=== PATIENT | male | born 1985 | race Caucasian/White ===

== ENCOUNTER → 2019-08-01 12:34 | Outpatient (CLI) | payer BC, SELFPAY ==
--- NOTE | 2019-08-05 12:50 | PC.NURSE ---
Pt notified of negative COVID 19 results.
[2019-08-05 16:14] LABS: Covid-19 Nasal PCR Sendout Lex NOT DETECTED
== END ==
PROVIDERS: Visit Provider Nurse Practitioner Family
DX: J02.9 Acute pharyngitis, unspecified (principal); Z20.828 Contact with and (suspected) exposure to other viral communicable diseases; R05 Cough; R53.83 Other fatigue

== ENCOUNTER 2023-10-28 19:30 | Outpatient (CLI) | payer OTHER, SELFPAY | END 2023-10-28 23:59 | disposition home or self-care (01) | LOC: LAB.DROPOF 19:32 | PROVIDERS: PCP Nurse Practitioner; Visit Provider Nurse Practitioner | DX: Z02.9 Encounter for administrative examinations, unspecified (principal) ==

== ENCOUNTER 2023-10-28 19:34 | Outpatient (CLI) | payer OTHER, SELFPAY ==
[2023-10-28 20:08] LABS: Basophils # 0.1 K/mm3 (0-0.2); Basophils % 1.3 % (0.1-2.0); Eosinophils # 0.3 K/mm3 (0.0-0.4); Eosinophils % 3.3 % (0.1-12.0); Hematocrit 46.2 % (42.0-52.0); Hemoglobin 15.9 g/dL (14.1-18.0); Lymphocytes # 3.3 K/mm3 (0.7-4.5); Lymphocytes % 33.2 % (10-50); Mean Corpuscular HGB Conc 34.4 g/dL (31.8-35.4); Mean Corpuscular Hemoglobin 32.2 pg (27.0-31.2); Mean Corpuscular Volume 93.5 fl (80-94); Mean Platelet Volume 9.5 fl (7.4-10.4); Monocytes # 0.7 K/mm3 (0.1-1.0); Monocytes % 6.5 % (1.7-9.3); Neutrophils # 5.6 K/mm3 (1.8-7.8); Neutrophils % 55.6 % (37.0-80.0); Platelet Count 326 K/mm3 (142-424); Red Blood Count 4.94 M/mm3 (4.60-6.20); Red Cell Distribution Width 13.2 % (11.5-17.5)
[2023-10-28 20:18] LABS: Creatinine,Urine Random 183 mg/dL (Not Estab.)
[2023-10-28 20:21] LABS: Microalbumin/Creatinine Ratio 5.3
[2023-10-28 20:27] LABS: Hemoglobin A1C 7.6 % (4.0-6.0)
[2023-10-28 20:59] LABS: Alanine Aminotransferase 91 U/L (12-78); Albumin Level 4.4 g/dl (3.5-5.0); Albumin/Globulin Ratio 1.6 (1.1-1.8); Alkaline Phosphatase 102 U/L (38-126); Anion Gap 13.1 mEq/L (5-15); Aspartate Amino Transferase 44 U/L (17-59); Bilirubin,Total 0.4 mg/dl (0.2-1.3); Blood Urea Nitrogen 23 mg/dl (9-20); Calcium 9.5 mg/dl (8.4-10.2); Carbon Dioxide 25 mmol/L (22.0-30.0); Chloride 107 mmol/L (98-107); Chol/HDL Ratio 7.8 (1-3.5); Cholesterol 204 mg/dl (140-200); Estimated Glomerular Filt Rate 67 ml/min (>60); GFR (African American) 82 ML/MIN (>60); Globulin 2.8 g/dL (1.3-3.2); Glucose 161 mg/dl (74-100); HDL Cholesterol 26 mg/dl (40-60); Potassium 4.1 mmoL/L (3.5-5.1); Sodium 141 mmol/L (136-145); Total Protein,Serum 7.2 g/dl (6.3-8.2); Triglycerides 364 mg/dl (30-150); VLDL Cholesterol 73 mg/dL (0-40)
[2023-10-28 21:10] LABS: Direct LDL Cholesterol 108.86 mg/dL (100-129)
[2023-10-28 21:16] LABS: 25-OH Vitamin D, Total 37.2 ng/mL (30-100)
[2023-10-28 21:50] LABS: Vitamin B12 817 pg/mL (239-931)
[2023-10-29 10:36] LABS: Thyroid Stimulating Hormone 1.33 uIU/mL (0.465-4.68)
== END 2023-10-28 23:59 | disposition home or self-care (01) ==
LOC: LAB.DROPOF 19:35
PROVIDERS: PCP Nurse Practitioner; Visit Provider Nurse Practitioner
DX: E11.9 Type 2 diabetes mellitus without complications (principal); E78.5 Hyperlipidemia, unspecified
CPT/HCPCS: 80050; 80053; 80061; 82043; 82306; 82570; 82607; 83036; 84443; 85025

== ENCOUNTER 2024-09-01 10:00 | Outpatient (CLI) | payer OTHER, SELFPAY ==
[2024-09-01 18:37] LABS: Basophils # 0.1 K/mm3 (0-0.2); Basophils % 0.7 % (0.1-2.0); Eosinophils # 0.2 Kmm3 (0.0-0.4); Eosinophils % 2.4 % (0.1-12.0); Hematocrit 46.3 % (42.0-52.0); Hemoglobin 15.7 g/dL (14.1-18.0); Immature Granulocytes # 0.02 10^3uL; Immature Granulocytes % 0.2 %; Lymphocytes # 2.4 K/mm3 (0.7-4.5); Lymphocytes % 28.3 % (10-50); Mean Corpuscular HGB Conc 33.9 g/dL (31.8-35.4); Mean Corpuscular Hemoglobin 30.8 pg (27.0-31.2); Mean Corpuscular Volume 90.8 fl (80-94); Mean Platelet Volume 11.3 fl (7.4-10.4); Monocytes # 0.7 K/mm3 (0.1-1.0); Monocytes % 8.4 % (1.7-9.3); Neutrophils # 5.1 K/mm3 (1.8-7.8); Nucleated Red Blood Cells # 0 10^3/uL; Nucleated Red Blood Cells % 0 %; Platelet Count 279 K/mm3 (142-424); Red Cell Distribution Width 12.6 % (11.5-17.5); Red Cell Distribution Width-SD 41.6 fL; White Blood Count 8.4 K/mm3 (4.8-10.8)
[2024-09-01 19:04] LABS: Alanine Aminotransferase 95 U/L (12-78); Albumin Level 4.7 g/dl (3.5-5.0); Alkaline Phosphatase 90 U/L (38-126); Anion Gap 10.2 mEq/L (5-15); Aspartate Amino Transferase 55 U/L (17-59); Bilirubin,Total 0.8 mg/dl (0.2-1.3); Blood Urea Nitrogen 21 mg/dl (9-20); Calcium 9.4 mg/dl (8.4-10.2); Carbon Dioxide 27 mmol/L (22.0-30.0); Chloride 108 mmol/L (98-107); Cholesterol 182 mg/dl (140-200); Estimated Glomerular Filt Rate 83 ml/min (>60); GFR (African American) 100 ML/MIN (>60); Globulin 2.3 g/dL (1.3-3.2); Glucose 163 mg/dl (74-100); HDL Cholesterol 26 mg/dl (40-60); Potassium 4.2 mmoL/L (3.5-5.1); Sodium 141 mmol/L (136-145); Triglycerides 239 mg/dl (30-150); VLDL Cholesterol 48 mg/dL (0-40)
[2024-09-01 19:17] LABS: Direct LDL Cholesterol 99.62 mg/dL (100-129)
[2024-09-01 19:27] LABS: 25-OH Vitamin D, Total 31.4 ng/mL (30-100)
[2024-09-01 19:35] LABS: Thyroid Stimulating Hormone 0.38 uIU/mL (0.465-4.68)
[2024-09-01 19:54] LABS: Vitamin B12 834 pg/mL (239-931)
[2024-09-01 22:59] LABS: Microalbumin/Creatinine Ratio 3.7
[2024-09-01 23:00] LABS: Creatinine,Urine Random 184 mg/dL (Not Estab.)
[2024-09-01 23:36] LABS: HIV Combo NEGATIVE (Negative)
[2024-09-01 23:45] LABS: Hepatitis C Ab Qual. W/ RFX NEGATIVE (Negative)
[2024-09-03 08:13] LABS: Testosterone,Total 333 ng/dL (264-916)
== END 2024-09-01 23:59 | disposition home or self-care (01) ==
LOC: LAB.DROPOF 09-02 08:31
PROVIDERS: PCP Nurse Practitioner; Visit Provider Nurse Practitioner
DX: Z13.0 Encounter for screening for diseases of the blood and blood-forming organs and certain disorders involving the immune mechanism (principal); E11.9 Type 2 diabetes mellitus without complications; E78.5 Hyperlipidemia, unspecified; R53.83 Other fatigue
CPT/HCPCS: 80053; 80061; 82043; 82306; 82570; 82607; 83036; 84403; 84443; 85025; 86803; 87389

== ENCOUNTER → 2024-10-08 12:06 | Outpatient (CLI) | payer OTHER, SELFPAY ==
--- OUTSIDE RECORDS SUMMARY | 2024-10-08 12:08 | XMS_ITS | Encounter Summary ---
Author Organization [facility] Address [address] [place] [address] Care Team Providers Care Hvac/R Instructor Name Role Phone Jah Valenzuela MD Primary Care Provider [phone] Lakisha Villanueva DIGITAL MARKETING COORDINATOR Unavailable Unavailable Maira Arias MD Unavailable [phone] Maira Arias MD Primary Care Provider [phone] Radha Reid DIGITAL MARKETING COORDINATOR Unavailable Unavailable Encounter Details Date Type Department Care Team (Late st Contact Info) Description 04/19/2019 Clinical Update [facility] Physicians - Primary Care, [address] [address] Jah Valenzuela MD [address] [address] Social History Tobacco Use Types Packs/Day Years Used Date Smoking Tobacco: Former Smokeless Tobacco: Current Snuff Alcohol Use Standard Drinks/Week Comments Yes 0 (1 standard drink = 0.6 oz pur e alcohol) AUDIT-C Answer Date Recorded Frequency of Alcohol Consumption Monthly or less 09/24/2018 Average Number of Drinks 1 or 2 019 Frequency of Binge Drinking Less than monthly PHQ-2 Answer Date Recorded PHQ-2 Score 0 09/24/2018 Sex and Gender Information Value Date Recorded Sex Assigned at Not on file Legal Sex Male 6:32 PM EST Gender Identity Not on file Sexual Orientation Not on file documented as of this encounter Plan of Treatment Not on file documented as of this encounter Visit Diagnoses Not on filedocumented in this encounter Additional Health Concerns Assessment Noted Time PHQ-9 Depression Total Score: 1 09/25/19 19 3:24 PM EDT documented as of this encounter Care Teams Hvac/R Instructor Relationship Specialty Start Date End Date Jah Valenzuela MD PCP - General Family Medicine 09/24/18 03/11/22 Maira Arias MD [email or web address] [address] PCP - General Family Medicine 03/12/22 Lakisha Villanueva NP Nurse Practitioner Nurse Practitioner, Family 10/03/20 Maira Arias MD Family Medicine 10/30/21 Radha Reid NP [address] [address] Registered Nurse Nurse Practitioner, Family 03/18/22 documented as of this encounter
--- OUTSIDE RECORDS SUMMARY | 2024-10-08 12:08 | XMS_ITS | Encounter Summary ---
Author Organization [facility] Address [address] [place] [address] Care Team Providers Care Field Support Specialist Name Role Phone Jah Valenzuela MD Primary Care Provider [phone] Lakisha Villanueva ROOM SERVICE ASSOCIATE Unavailable Unavailable Maira Arias MD Unavailable [phone] Maira Arias MD Primary Care Provider [phone] Radha Reid ROOM SERVICE ASSOCIATE Unavailable Unavailable Reason for Visit * Reason Comments Medications Refill Encounter Details Date Type Department Care Team (Late st Contact Info) Description 10/03/2020 Refill [facility] Physicians - Primary Care[address] [address] Jah Valenzuela MD [address] [address] Medications Refill Social History Tobacco Use Types Packs/Day Years Used Date Smoking Tobacco: Former Smokeless Tobacco: Current Snuff Alcohol Use Standard Drinks/Week Comments Yes 0 (1 standard drink = 0.6 oz pur e alcohol) AUDIT-C Answer Date Recorded Frequency of Alcohol Consumption Monthly or less 09/24/2018 Average Number of Drinks 1 or 2 019 Frequency of Binge Drinking Less than monthly PHQ-2 Answer Date Recorded PHQ-9 Auto Total 0 02/02/2020 Sex and Gender Information Value Date Recorded Sex Assigned at Not on file Legal Sex Male 6:32 PM EST Gender Identity Not on file Sexual Orientation Not on file COVID-19 Exposure Response Date Recorded In the last month, have you been in contact with someone who was confirmed or suspected to have Coronavirus / COVID-19? Unable to assess 10/04/2020 3:19 PM EDT documented as of this encounter Miscellaneous Notes * Telephone Encounter - Harini Valenzuela NCMA - 10/04/2020 10:52 AM EDT LMOVM letting patient know he needs to be seen before his next refill so call the office to schedule an appointment * Telephone Encounter - Jah Valenzuela MD - 10/04/2020 10:27 AM EDT Make sure that he knows that he needs an appointment to address his Ambien use. There are no problems with that, it is just not documented in his chart. 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, shift work type documented in this encounter Additional Health Concerns Assessment Noted Time PHQ-9 Depression Total Score: 1 02/02/20 20 3:35 PM EDT documented as of this encounter Care Teams Field Support Specialist Relationship Specialty Start Date End Date Jah Valenzuela MD PCP - General Family Medicine 09/24/18 03/11/22 Maira Arias MD [address] [place] [address] PCP - General Family Medicine 03/12/22 Lakisha Villanueva NP Nurse Practitioner Nurse Practitioner, Family 10/03/20 Maira Arias MD Family Medicine 10/30/21 Radha Reid NP [address] [address] Registered Nurse Nurse Practitioner, Family 03/18/22 documented as of this encounter
--- OUTSIDE RECORDS SUMMARY | 2024-10-08 12:08 | XMS_ITS | Clinical Summary ---
Author Organization [facility] Address [address] [place] [address] Care Team Providers Care Transactional Attorney Name Role Phone Lakisha Villanueva MASK FORMER Unavailable Unavailable Maira Arias MD Unavailable [phone] Maira Arias MD Primary Care Provider [phone] Radha Reid MASK FORMER Unavailable Unavailable Allergies No known active allergies Medications amoxicillin-clavulan ate (AUGMENTIN) 875-125 mg per tablet 2 times daily. 2 Active ondansetron (ZOFRAN) 8 mg tabletIndications:Ac jame gastroenteritis Take 1 Tablet (8 mg) by mouth every 8 hours as needed for Nausea or Vomiting. 20 Tablet 2 Active fluticasone propionate (FLONASE) 50 mcg/actuation nasal sprayIndications:Acu te dysfunction of both eustachian tubes Mcintosh 2 Sprays into nose daily. 1 Each 2 2 Active Active Problems Problem Noted Date Diagnosed Date Obesity (BMI 30.0-34.9) 11/01/2021 Type 2 diabetes mellitus wit hout complication, without long-term current use of insulin 09/24/2018 Dyslipidemia 09/24/2018 Shift work sleep disorder 09/24/2018 Nonspecific elevation of lev els of transaminase or lactic acid dehydrogenase (LDH) 03/20/2010 Immunizations Immunization Administration Dates Next Due Influenza 01/09/2017 Influenza (whole) 02/26/2021,01/26/2020,01/26/20 19 SARS-Cov-2 Vaccine Red Top 1 2+yrs Old (MODERNA) 12/22/2020,11/27/2020 Tdap 11/04/2017 Family History Medical History Relation Name Comments Alcohol Abuse Mother Lupus Mother No Known Problems Sister Relation Name Status Comments Father estranged Alive Mother Alive Sister Alive Social History Tobacco Use Types Packs/Day Years Used Date Smoking Tobacco: Former Smokeless Tobacco: Current Chew Tobacco Cessation:Ready to Q uit: No; Counseling Given: Yes Alcohol Use Standard Drinks/Week Comments Yes 0 (1 standard drink = 0.6 oz pur e alcohol) AUDIT-C Answer Date Recorded Frequency of Alcohol Consumption Monthly or less 09/24/2018 Average Number of Drinks 1 or 2 019 Frequency of Binge Drinking Less than monthly PHQ-2 Answer Date Recorded PHQ-9 Auto Total 0 05/02/2021 Sex and Gender Information Value Date Recorded Sex Assigned at Not on file Legal Sex Male 6:32 PM EST Gender Identity Not on file Sexual Orientation Not on file Last Filed Vital Signs Vital Sign Reading Time Taken Comments Blood Pressure 124/70 03/18/2022 9:40 AM EST Pulse 77 03/18/2022 9:40 AM EST Temperature 37 C (98.6 F) 03/18/2022 9:40 AM EST Respiratory Rate 16 05/02/2021 2:27 PM EST Oxygen Saturation 98% 03/18/2022 9:40 AM EST Inhaled Oxygen Concentration - - Weight 107.5 kg (237 lb) 03/18/2022 9:40 AM EST Height 182.9 cm (6') 10/30/2021 4:46 PM EDT Body Mass Index 32.14 10/30/2021 4:46 PM EDT Plan of Treatment Health Maintenance Due Date Last Done Comments Diabetes Mellitus Eye Exam (Yearly) 1984 Diabetes Mellitus Foot Care (Yearly) 1984 RETIRED: Pneumovax Vaccine (Once) 02/03/2002 Diabetes A1c Monitoring 05/02/2022 10/31/19, 05/02/2021, 10/16/2020, Additional history exists Diabetes Mellitus Microalbumin (Yearly) 05/02/2022 05/02/2021, 10/16/2020, 05/04/2019 Lipid Monitoring 10/30/2022 10/30/2021, 08/2021, 10/16/2020, Additional history exists Renal Monitoring 10/30/2022 10/30/2021, 08/2021, 10/16/2020, Additional history exists COVID-19 Vaccine ( season) 2023 12/22/2020, 11/27/2020 Depression Screening 04/28/2024 05/02/2021, 02/02/2020, 09/24/2018 Influenza Vaccination (Season Ended) 2024 02/26/2021, 01/26/2020, 01/25/2019, Additional history exists Tetanus Vaccination (Every 10 Years) 11/05/2027 11/04/2017 Influenza Vaccination (Yearly) Discontinued 02/26/2021, 01/26/2020, 01/25/2019, Additional history exists Diabetes Mellitus Hemoglobin A1c (Yearly) Discontinued 10/30/2021, 05/02/2021, 10/16/2020, Additional history exists Lipid Screening Discontinued 10/30/2021, 08/2021, 10/16/2020, Additional history exists HPV Vaccine Aged Out No longer eligi ble based on patient's age to complete this topic Pneumococcal Vaccine: At-Risk Patients (6-49 y/o) Aged Out No longer eligible based on patient's age to complete this topic Procedures Procedure Name Priority Date/Time Associated Diagnosis Comments COMPREHENSIVE METABOLIC PANEL Routine 10/30/2021 5:02 PM EDT Obesity (BMI 30.0-34.9) LIPID PROFILE Routine 10/30/2021 5:02 PM EDT Obesity (BMI 30.0-34.9) HGB, A1C (GLYCOHEMOGLOBIN) Routine 10/30/2021 5:02 PM EDT Obesity (BMI 30.0-34.9) ALBUMIN, URINE CREATININE/RATIO Routine 05/02/2021 3:03 PM EST Type 2 diabetes mellitus without complication, without long-term current use of insulin ([facility]) from Last 3 Months or Most Recently Relevant to Health Maintenance Results * (ABNORMAL) LIPID PROFILE (10/30/2021 5:02 PM EDT) Chol/HDL Ratio 6.5(H) 0 - 5 [facility]TER[facility] Cholesterol 209(H) 125 - 199 mg/dL [facility] Comment: TOTAL CHOLESTEROL INTERPRETATION: Less than 200 mg/dL Desireable 200-239 mg/dL Borderline Greater or Equal to 240 mg/dL High LDL Calculated 129(H) 0 - 100 mg/dL [facility] Comment: LDL CHOLESTEROL INTERPRETATION: Less than 100 mg/dL Optimal 100-129 mg/dL Near optimal/above optimal 130-159 mg/dL Borderline High 160-189 mg/dL High Greater or Equal to 190 mg/dL Very High HDL 32(L) 40 - 180 mg/dL [facility] Comment: HDL CHOLESTEROL INTERPRETATION: Less than 40 mg/dL Low Greater than 60 mg/dL Desirable Triglycerides 239(H) 0 - 149 mg/dL [facility] Comment: TOTAL TRIGLYCERIDE INTERPRETATION: Less than 150 mg/dL Normal 150-199 mg/dL Borderline HIgh 200-499 mg/dL High Greater or Equal to 500 mg/dL Very High Serum (Serum) 10/30/2021 5:0 2 PM EDT 10/30/2021 7:43 PM EDT us Maira Arias MD CHEMISTRY ORDERABLES Final Re sult [facility] [address] * (ABNORMAL) HGB, A1C (GLYCOHEMOGLOBIN) (10/30/2021 5:02 PM EDT) Hgb A1C 6.7(H) 4.0 - 5.6 % [facility] Comment: Reference Ranges for Hgb A1c: Increased risk for diabetes: 5.7-6.4% Probable diabetes: >=6.5% Desired control for previously diagnosed diabetics: <7.0% Many conditions can affect the Hgb A1c value including hemolysis, recent transfusion, hemoglobin variants, thalassemias, severe chronic hepatic and renal disease and iron deficiency among others. Please note that results from this assay are invalid for patients with abnormal amounts of Hemoglobin (HbF). Results must be interpreted in the proper clinical context. This method is certified by the National Glycohemoglobin Standardization program (NGSP) and traceable to DCCT. Estimated Average Glucose 146(H) 68 - 114 mg/dL [facility] Whole Blood 10/30/2021 5:02 PM EDT 10/30/2021 7:39 PM EDT us Maira Arias MD CHEMISTRY ORDERABLES Final Re sult [facility] [address] [place], [place] [address] * (ABNORMAL) COMPREHENSIVE METABOLIC PANEL (10/30/2021 5:02 PM EDT) Sodium 138 135 - 146 mmol/L [facility] Potassium 4.1 3.5 - 5.1 mmol/L [facility] Chloride 106 98 - 110 mmol/L [facility] CO2 23 22 - 29 mmol/L [facility] Comment: Based on [facility] recommendations, this result is no longer considered a critical value requiring lab to notify caregiver. Anion Gap 9 5 - 13 mmol/L [facility] Comment:Anion gap calculatio n does not include potassium (K+) value. BUN 17 7 - 25 mg/dL [facility] Comment: Based on [facility] recommendations, this result is no longer considered a critical value requiring lab to notify caregiver. Creatinine 1.16 0.50 - 1.30 mg/dL [facility] Glucose 135(H) 71 - 99 mg/dL [facility] eGFR CKD-EPI 2020 83 See Note [facility] Comment: eGFR calculated with 2020 CKD-EPI equation using creatinine, patient's age and gender. Other factors, especially muscle mass, may affect accuracy and need to be considered. Patient values should be interpreted as a trend. The reference interval is >60 mL/min/1.73m2. Calcium 9.4 8.8 - 10.9 mg/dL [facility] Total Bilirubin 0.6 0.2 - 1.2 mg/dL [facility] AST 33 0 - 40 U/L [facility] ALT 68(H) 0 - 60 U/L [facility] Alkaline Phosphatase 102 33 - 140 U/L [facility] Total Protein 7.9 6.0 - 8.0 g/dL [facility] Albumin 4.8 3.5 - 5.0 g/dL [facility] Globulin 3.1 2.0 - 3.7 g/dL [facility] Albumin/Globulin Ratio 1.5 1.0 - 2.1 [facility] BUN/Creatinine Ratio 15 [facility] Serum (Serum) 10/30/2021 5:0 2 PM EDT 10/30/2021 7:43 PM EDT Maira Arias MD CHEMISTRY ORDERABLES Final Re sult Performing Organization Address [facility] de Phone Number [facility] [address] * ALBUMIN, URINE (05/02/2021 3:03 PM EST) Creatinine, Ur 249.7 30.0 - 310.0 mg/dL [facility] Alb, Ur 1.00 mg/dL [facility] Alb Creat Ratio 4 0 - 30 mg/g creat [facility] Comment: Category Result (mg/ g Creat) Normal to mildly increased <30 Moderately increased 30-299 Severly increased >300 Due to variability in urinary albumin excretion, at least two of three test results measured within a 6-month period should show elevated levels before a patient is designated as having albuminuria. Urine 05/02/2021 3:03 PM EST 05/02/2021 8:04 PM EST Jah Valenzuela MD URINE ORDERABLES Final Resul t Performing Organization Address [facility] Co de Phone Number [facility] [address] from Last 3 Months or Most Recently Relevant to Health Maintenance Insurance [facility] [id number] [id number] Care Teams Transactional Attorney Relationship Specialty Start Date End Date Maira Arias MD [address] [address] PCP - General Family Medicine 03/12/22 Lakisha Villanueva NP Nurse Practitioner Nurse Practitioner, Family 10/03/20 Maira Arias MD Family Medicine 10/30/21 Radha Reid NP [address] [address] Registered Nurse Nurse Practitioner, Family 03/18/22
--- OUTSIDE RECORDS SUMMARY | 2024-10-08 12:08 | XMS_ITS | Referral Summary ---
Author Organization [facility] Address [address] [place] [address] Care Team Providers Care Pellet Preparation Operator Name Role Phone Pcp, None MD Primary Care Provider [phone] Allergies No known active allergies Medications No known medications Social History Tobacco Use Types Packs/Day Years Used Date Smoking Tobacco: Never Smokeless Tobacco: Current Chew Tobacco Cessation:Ready to Q uit: Not Asked; Counseling Given: Not Answered Alcohol Use Standard Drinks/Week Comments Yes 0 (1 standard drink = 0.6 oz pur e alcohol) occ Food Insecurities Answer Date Recorded Worried about running out of food Not on file 05/19/2023 Food Bought Not on file 05/19/2023 Housing/Utilities Answer Date Recorded Worried about losing home Not on file 2023 Stayed outside house Not on file 05/19/2023 Unable to get utilities Not on file 05/19/19 24 Interpersonal Safety Answer Date Record ed Feel physically or emotionally unsafe where curr ently live Not on file 05/19/2023 Harm by anyone Not on file 05/19/2023 Emotionally Harmed Not on file 05/19/2023 Transportation Answer Date Recorded Worried about transportation Not on file Utilities Answer Date Recorded Worried about losing home Not on file 2023 Stayed outside house Not on file 08/31/2023 Unable to get utilities Not on file 08/31/19 24 Sex and Gender Information Value Date Recorded Sex Assigned at Not on file Legal Sex Male 9:28 PM EDT Gender Identity Not on file Sexual Orientation Not on file Last Filed Vital Signs Vital Sign Reading Time Taken Comments Blood Pressure 166/98 04/13/2023 10:23 AM EST Pulse 76 04/13/2023 10:23 AM EST Temperature 36.6 C (97.8 F) 04/13/2023 10:23 AM EST Respiratory Rate 16 04/13/2023 10:23 AM EST Oxygen Saturation 96% 04/13/2023 10:23 AM EST Inhaled Oxygen Concentration - - Weight - - Height - - Body Mass Index - - Plan of Treatment Not on file Insurance [facility] NOT MEDICARE Care Teams Pellet Preparation Operator Relationship Specialty Start Date End Date Pcp, MD Jason PCP - General Internal Medicine 04/13/23
--- OUTSIDE RECORDS SUMMARY | 2024-10-08 12:08 | XMS_ITS | Patient Health Record ---
Author Organization [facility] Address [address] [place] [address] Care Team Providers Care Drafter Geological Name Role Phone [facility], Physicians Primary Care Provide r Unavailable Allergies Allergen (clinical drug ingredient) Drug/Non Drug Allergy documented on EMR Reaction Allergy Type Onset Date Status No Known Drug Allergy Unknown Drug Allergy Active Reason For Referral No Information Medications Medication SIG (Take, Route, Frequency, Duration) Notes Start Date End Date Status Tylenol 325 MG 2 tab(s) orally every 4 hours 10/04/2016 Not-Taking predniSONE 20 MG 3 tabs X 5 days, 2 tabs X 5 days, 1 tab X 5 days orally once a day for 15 day(s) 10/04/2016 Not-Taking Zanfel - 1 CANDELARIO APPLIED TOPICALLY 2 TIMES A DAY *Please review and pick correct strength-formulatio n from [employer] options. If intended option is not shown, discontinue and re-order from Quick Search* Not-Taking Caladryl 1-8 % 1 candelario applied topically 3 times a day Not-Taking Immunizations Vaccine Route Administration Date Status Comme nts Chicken Pox Varivax Vaccine SC Subcutaneous 09/07/2015 Adm inistered Chicken Pox Varivax Vaccine SC Subcutaneous 04/15/2016 Adm inistered zPPD ID Intradermal 09/07/2015 Administered zPPD ID Intradermal 08/21/2016 Administered Problems No Known Problems Plan Of Treatment No Information Insurance Providers Payer Name Payer Address Payer Phone Subscriber Number Group Number Insured Name Patient Relationship to Insured Coverage Start Date Coverage End Date [employer] [place] [address] [place] [address] [id number] Sacha Parnell Self - patient is the insured Medical (General) History Medical History History ICD Code Type 2 Diabetes Hospitalization History Reason Date(Month/Year) [place]? 2008
--- OUTSIDE RECORDS SUMMARY | 2024-10-08 12:08 | XMS_ITS | Clinical Summary ---
Author Organization [facility] Address [address] [place] [address] Care Team Providers Care Payroll Accounting Specialist Name Role Phone Pcp, No Primary Care Provider [phone] Source Comments This information has been disclosed to you from confidential records protectedfrom disclosure by state law. You shall make no further disclosure of thisinformation without the specific, written, and informed release of theindividual to whom it pertains, or as otherwise permitted by law. A generalauthorization for the release of medical or other information is not sufficientfor the purposes of therelease of HIV test results or diagnoses. [id number] Allergies No known active allergies Medications predniSONE (DELTASONE) 10 MG tablet 6 po daily for 2 d 5 po daily for 2 d 4 po daily for 2 d 3 po daily for 2 d 2 po daily for 2 d 1 po daily for 2 d 42 tablet 0 11/16/2013 Active Active Problems Problem Noted Date Diagnosed Date Pneumonia, organism unspecified(486) 06/19/2011 Nonspecific elevation of lev els of transaminase or lactic acid dehydrogenase (LDH) 03/20/2010 Rhabdomyolysis 03/15/2010 Pure hyperglyceridemia 03/15/2010 Abnormal weight gain 03/15/2010 Other abnormal blood chemistry 03/15/2010 Routine general medical exam ination at a health care facility 03/15/2010 Social History Tobacco Use Types Packs/Day Years Used Date Smoking Tobacco: Never Assessed Sex and Gender Information Value Date Recorded Sex Assigned at Not on file Legal Sex Male 10:25 PM EST Gender Identity Not on file Sexual Orientation Not on file Plan of Treatment Not on file Insurance [facility] Care Teams Payroll Accounting Specialist Relationship Specialty Start Date End Date Pcp, No No Address PCP - General 02/08/22
--- OUTSIDE RECORDS SUMMARY | 2024-10-08 12:08 | XMS_ITS | Clinical Summary ---
Author Organization [facility] Address [address] [place] [address] Phone Care Team Providers Care Pharmacist Aide Name Role Phone Unavailable Primary Care Provider Unavailabl e Allergies No known active allergies Medications No known medications Active Problems Problem Noted Date Diagnosed Date Obesity (BMI 30.0-34.9) 11/01/2021 Dyslipidemia 09/24/2018 Type 2 diabetes mellitus wit hout complication, without long-term current use of insulin 09/24/2018 Nonspecific elevation of lev els of transaminase or lactic acid dehydrogenase (LDH) 03/20/2010 Social History Tobacco Use Types Packs/Day Years Used Date Smoking Tobacco: Never Smokeless Tobacco: Current Tobacco Cessation:Ready to Q uit: Not Asked; Counseling Given: Not Answered Sex and Gender Information Value Date Recorded Sex Assigned at Not on file Legal Sex Male 9:10 AM EST Gender Identity Not on file Sexual Orientation Not on file Obstetrics History Last Filed Vital Signs Vital Sign Reading Time Taken Comments Blood Pressure 134/76 06/29/2023 11:02 AM EST Pulse 74 06/29/2023 11:02 AM EST Temperature 36.6 C (97.8 F) 06/29/2023 11:02 AM EST Respiratory Rate 18 06/29/2023 11:0 2 AM EST Oxygen Saturation 99% 06/29/2023 11: 02 AM EST Inhaled Oxygen Concentration - - Weight 113.6 kg (250 lb 6.4 oz) 024 11:02 AM EST Height 180.3 cm (5' 11 ) 06/29/2023 11: 02 AM EST Body Mass Index 34.92 06/29/2023 11:02 AM EST Plan of Treatment Health Maintenance Due Date Last Done Comments Annual Wellness Exam 02/03/1987 Lipids 02/03/1994 Microalbuminuria 02/03/1994 Diabetic Eye Exam 02/03/2002 Hemoglobin A1c 02/03/2002 Hepatitis B Vaccine (1 of 3 - 19+ 3-dose series) 02/03/2003 Pneumococcal Vaccine 0-49 (1 of 2 - PCV) 02/03/2003 COVID-19 Vaccine (3 - 2023-2 5 season) 2023 12/22/2020, 11/27/2020 Influenza Vaccine (Season Ended) 2024 01/09/2017, 01/09/2017 DTaP/TDaP/Td (3 - Td or Tdap) 09/30/2032, 11/04/2017 Meningococcal B Vaccine Aged Out No l onger eligible based on patient's age to complete this topic Insurance
--- OUTSIDE RECORDS SUMMARY | 2024-10-08 12:08 | XMS_ITS | Clinical Summary ---
Author Organization [facility] Address [address] [place] [address] Care Team Providers Care Memory Care Program Director Name Role Phone Pcp, None MD Primary Care Provider [phone] Allergies No known active allergies Medications No [...] Mass Index - - Plan of Treatment Health Maintenance Due Date Last Done Comments COVID-19 Vaccine ( season) 2023 12/22/2020, 11/27/2020 Influenza Vaccine (Season Ended) 2024 02/26/2021, 01/26/2020, 01/25/2019, Additional history exists DTap,Tdap,and Td (2 - Td or Tdap) 11/05/2027 11/04/2017 RSV Vaccine (60+ or ) (1 - 1-dose 75+ series) 02/03/2059 HPV Aged Out No longer eligi ble based on patient's age to complete this topic Meningococcal conjugate valent 4 (MCV4) Aged Out No longer eligible based on patient's age to complete this topic Pneumococcal 0-49 Aged Out No longer eligible based on patient's age to complete this topic RSV Immunization (<20 months) Aged Out No longer eligible based on patient's age to complete this topic Insurance Care Teams Memory Care Program Director Relationship Specialty Start Date End Date Pcp, MD Jason PCP - General Internal Medicine 04/13/23
== END ==
LOC: SL 12:06
PROVIDERS: PCP Nurse Practitioner; Visit Provider Nurse Practitioner
DX: G47.26 Circadian rhythm sleep disorder, shift work type (principal); G47.33 Obstructive sleep apnea (adult) (pediatric); G47.36 Sleep related hypoventilation in conditions classified elsewhere
CPT/HCPCS: G0399

== ENCOUNTER 2024-12-07 10:17 | Outpatient (CLI) | payer OTHER, SELFPAY ==
[2024-12-07 16:16] LABS: Alanine Aminotransferase 64 U/L (12-78); Albumin Level 4.8 g/dl (3.5-5.0); Albumin/Globulin Ratio 1.9 (1.1-1.8); Alkaline Phosphatase 92 U/L (38-126); Anion Gap 11.4 mEq/L (5-15); Aspartate Amino Transferase 38 U/L (17-59); Bilirubin,Total 0.6 mg/dl (0.2-1.3); Blood Urea Nitrogen 20 mg/dl (9-20); Calcium 9.5 mg/dl (8.4-10.2); Carbon Dioxide 27 mmol/L (22.0-30.0); Chloride 107 mmol/L (98-107); Cholesterol 162 mg/dl (140-200); Creatinine,Serum 1.10 mg/dl (0.66-1.25); Estimated Glomerular Filt Rate 74 ml/min (>60); GFR (African American) 90 ML/MIN (>60); Globulin 2.5 g/dL (1.3-3.2); Glucose 133 mg/dl (74-100); HDL Cholesterol 28 mg/dl (40-60); Potassium 4.4 mmoL/L (3.5-5.1); Sodium 141 mmol/L (136-145); Total Protein,Serum 7.3 g/dl (6.3-8.2); Triglycerides 258 mg/dl (30-150)
[2024-12-07 17:57] LABS: Hemoglobin A1C 6.4 % (4.0-6.0)
--- OUTSIDE RECORDS SUMMARY | 2024-12-08 11:54 | XMS_ITS | Clinical Summary ---
Author Organization [facility] Address [address] [place] [address] Care Team Providers Care Occupational Therapy Director Name Role Phone Lakisha Villanueva RUBBER CHEMIST Unavailable Unavailable Maira Arias MD Unavailable [phone] Maira Arias MD Primary Care Provider [phone] Radha Reid RUBBER CHEMIST Unavailable Unavailable Allergies No known active allergies Medications amoxicillin-clavulan ate (AUGMENTIN) 875-125 mg per tablet 2 times daily. 2 Active ondansetron (ZOFRAN) 8 mg tabletIndications:Ac jame gastroenteritis Take 1 Tablet (8 mg) by mouth every 8 hours as needed for Nausea or Vomiting. 20 Tablet 2 Active fluticasone propionate (FLONASE) 50 mcg/actuation nasal sprayIndications:Acu te dysfunction of both eustachian tubes [place] 2 Sprays into nose daily. 1 Each [...] Screening 04/28/2024 05/02/2021, 02/02/2020, 09/24/2018 Influenza Vaccination (#1) 12/27/202402/26, 01/26/2020, 01/25/2019, Additional history exists Tetanus Vaccination [...] complication, without long-term current use of insulin from Last 3 Months or Most Recently Relevant to Health Maintenance Results * (ABNORMAL) LIPID PROFILE (10/30/2021 5:02 PM EDT) Chol/HDL Ratio 6.5(H) 0 - 5 [facility] Cholesterol 209(H) 125 - 199 mg/dL [facility] Comment: TOTAL CHOLESTEROL INTERPRETATION: Less than 200 mg/dL Desireable 200-239 mg/dL Borderline Greater or Equal to 240 mg/dL High LDL Calculated 129(H) 0 - 100 mg/dL [facility] Comment: LDL CHOLESTEROL INTERPRETATION: Less than 100 mg/dL Optimal 100-129 mg/dL Near optimal/above optimal 130-159 mg/dL Borderline High 160-189 mg/dL High Greater or Equal to 190 mg/dL Very High HDL 32(L) 40 - 180 mg/dL [facility] Comment: HDL CHOLESTEROL INTERPRETATION: Less than 40 mg/dL Low Greater than 60 mg/dL Desirable Triglycerides 239(H) 0 - 149 mg/dL [facility] Comment: TOTAL TRIGLYCERIDE INTERPRETATION: Less than 150 mg/dL Normal 150-199 mg/dL Borderline HIgh 200-499 mg/dL High Greater or Equal to 500 mg/dL Very High Serum (Serum) 10/30/2021 5:0 2 PM EDT 10/30/2021 7:43 PM EDT us Maira Arias MD CHEMISTRY ORDERABLES Final Re sult [facility] [address] * (ABNORMAL) HGB, A1C (GLYCOHEMOGLOBIN) (10/30/2021 5:02 PM EDT) Hgb A1C 6.7(H) 4.0 - 5.6 % [facility] Comment: Reference Ranges for Hgb [...] Arias MD CHEMISTRY ORDERABLES Final Re sult [facility] [address] [id number] * (ABNORMAL) COMPREHENSIVE METABOLIC PANEL (10/30/2021 5:02 PM EDT) Sodium 138 135 - 146 mmol/L [facility] Potassium 4.1 3.5 - 5.1 mmol/L [facility] Chloride 106 98 - 110 mmol/L [facility] CO2 23 22 - 29 mmol/L [facility] Comment: Based on [facility] recommendations, this result is no longer considered a critical value requiring lab to notify caregiver. Anion Gap 9 5 - 13 mmol/L [facility] Comment:Anion gap calculatio n does not include potassium (K+) value. BUN 17 7 - 25 mg/dL [facility] Comment: Based on [facility] recommendations, this result is no longer considered a critical value requiring lab to notify caregiver. Creatinine 1.16 0.50 - 1.30 mg/dL [facility] Glucose 135(H) 71 - 99 [...] LAB ALT 68(H) 0 - 60 U/L [facility] Alkaline Phosphatase 102 33 - 140 U/L [facility] Total Protein 7.9 6.0 - 8.0 g/dL [facility] Albumin 4.8 3.5 - 5.0 g/dL [facility] Globulin 3.1 2.0 - 3.7 g/dL [facility] Albumin/Globulin Ratio 1.5 1.0 - 2.1 [facility] BUN/Creatinine Ratio 15 [facility] Serum (Serum) 10/30/2021 5:0 2 PM EDT 10/30/2021 7:43 PM EDT Maira Arias MD CHEMISTRY ORDERABLES Final Re sult Performing Organization Address [facility] de Phone Number [facility] [address] * ALBUMIN, URINE (05/02/2021 3:03 PM EST) Creatinine, Ur 249.7 30.0 - 310.0 mg/dL [facility] Alb, Ur 1.00 mg/dL [facility] HOTEL OPERATIONS MANAGER [facility] Alb Creat Ratio 4 0 - 30 mg/g creat [facility] Comment: Category Result (mg/ g Creat) Normal to mildly increased <30 Moderately increased 30-299 Severly increased >300 Due to variability in urinary albumin excretion, at least two of three test results measured within a 6-month period should show elevated levels before a patient is designated as having albuminuria. Urine 05/02/2021 3:03 PM EST 05/02/2021 8:04 PM EST us Jah Valenzuela MD URINE ORDERABLES Final Resul t Performing Organization Address [facility] Co de Phone Number [facility] [address] from Last 3 Months or Most Recently Relevant to Health Maintenance Insurance SHRUTHI ANTHEM Care Teams Occupational Therapy Director Relationship Specialty Start Date End Date Maira Arias MD [address] [address] PCP - General Family Medicine 03/12/22 Lakisha Villanueva NP Nurse Practitioner Nurse Practitioner, Family 10/03/20 Maira Arias MD Family Medicine 10/30/21 Radha Reid NP [address] [address] Registered Nurse Nurse Practitioner, Family 03/18/22
--- OUTSIDE RECORDS SUMMARY | 2024-12-08 11:54 | XMS_ITS | Referral Summary ---
Author Organization [facility] Address [address] [place] [address] Care Team Providers Care Class A Truck Driver Name Role Phone Pcp, None MD Primary Care Provider [phone] Allergies No known active allergies Medications No [...] Plan of Treatment Not on file Insurance [facility] ALL OTHERS NOT MEDICARE Care Teams Class A Truck Driver Relationship Specialty Start Date End Date Pcp, MD Jason PCP - General Internal Medicine 04/13/23
--- OUTSIDE RECORDS SUMMARY | 2024-12-08 11:54 | XMS_ITS | Encounter Summary ---
Author Organization [facility] Address [address] [place] [address] Care Team Providers Care Employment Appeals Examiner Name Role Phone Jah Valenzuela MD Primary Care Provider [phone] Lakisha Villanueva DIESEL MECHANIC FARM Unavailable Unavailable Maira Arias MD Unavailable [phone] Maira Arias MD Primary Care Provider [phone] Radha Reid DIESEL MECHANIC FARM Unavailable Unavailable Reason for Visit * Reason Comments Medications Refill Encounter Details Date Type Department Care Team (Late st Contact Info) Description 10/03/2020 Refill [facility] [address] [place] [phone] Jah Valenzuela MD [address] [address] Medications Refill Social History Tobacco [...] documented as of this encounter Care Teams Employment Appeals Examiner Relationship Specialty Start Date End Date Jah Valenzuela MD PCP - General Family Medicine 09/24/18 03/11/22 Maira Arias MD [address] [place] [address] PCP - General Family Medicine 03/12/22 Lakisha Villanueva NP Nurse Practitioner Nurse Practitioner, Family 10/03/20 Maira Arias MD Family Medicine 10/30/21 Radha Reid NP [address] [address] Registered Nurse Nurse Practitioner, Family 03/18/22 documented as of this encounter
--- OUTSIDE RECORDS SUMMARY | 2024-12-08 11:54 | XMS_ITS | Encounter Summary ---
Author Organization [facility] Address [address] [place] [address] Care Team Providers Care Economist Research Assistant Name Role Phone Jah Valenzuela MD Primary Care Provider [phone] Lakisha Villanueva HUMAN PERFORMANCE CONSULTANT Unavailable Unavailable Maira Arias MD Unavailable [phone] Maira Arias MD Primary Care Provider [phone] Radha Reid HUMAN PERFORMANCE CONSULTANT Unavailable Unavailable Encounter Details Date Type Department Care Team (Late st Contact Info) Description 04/19/2019 Clinical Update [facility] Physicians - Primary Care, [address] [address] Jah Valenzuela MD [address] [address] Social History Tobacco Use Types [...] documented as of this encounter Care Teams Economist Research Assistant Relationship Specialty Start Date End Date Jah Valenzuela MD PCP - General Family Medicine 09/24/18 03/11/22 Maira Arias MD [address] [address] PCP - General Family Medicine 03/12/22 Lakisha Villanueva NP Nurse Practitioner Nurse Practitioner, Family 10/03/20 Maira Arias MD Family Medicine 10/30/21 Radha Reid NP [address] [address] Registered Nurse Nurse Practitioner, Family 03/18/22 documented as of this encounter
--- OUTSIDE RECORDS SUMMARY | 2024-12-08 11:54 | XMS_ITS | Clinical Summary ---
Author Organization [facility] Address [address] [place] [address] Care Team Providers Care Account Manager Name Role Phone Pcp, None MD Primary Care Provider [phone] Allergies No known active allergies Medications No [...] Health Maintenance Due Date Last Done Comments HPV (1 - 3-dose SCDM series) 02/03/2011 COVID-19 Vaccine (3 - 2023- season) 2023 12/22/2020, 11/27/2020 Influenza Vaccine (#1) 2024 , 01/26/2020, 01/25/2019, Additional history exists DTap,Tdap,and Td (2 - Td or Tdap) 11/05/2027 11/04/2017 RSV Vaccine (60+ or ) (1 - 1-dose 75+ series) 02/03/2059 Meningococcal conjugate valent 4 (MCV4) Aged Out No longer eligible based on patient's age to complete this topic Pneumococcal 0-49 Aged Out No longer eligible based on patient's age to complete this topic RSV Immunization (<20 months) Aged Out No longer eligible based on patient's age to complete this topic [place] [address] [place] [address] ALL OTHERS NOT MEDICARE Care Teams Account Manager Relationship Specialty Start Date End Date Pcp, MD Jason PCP - General Internal Medicine 04/13/23
--- OUTSIDE RECORDS SUMMARY | 2024-12-08 11:54 | XMS_ITS | Clinical Summary ---
Author Organization [facility] Address [facility] [place] [address] Phone Care Team Providers Care Model Maker Apprentice Name Role Phone Unavailable Primary Care Provider [...] Comments Annual Wellness Exam 02/03/1987 Lipids 02/03/1994 Diabetic Eye Exam 02/03/2002 Hemoglobin A1c 02/03/2002 Kidney Health: eGFR 02/03/2002 Kidney Health: uACR 02/03/2002 Hepatitis B Vaccine (1 of 3 - 19+ 3-dose series) 02/03/2003 Pneumococcal Vaccine 0-49 (1 of 2 - PCV) 02/03/2003 COVID-19 Vaccine (3 - 2023-2 5 season) 2023 12/22/2020, 11/27/2020 Influenza Vaccine (#1) 2024 7, 01/09/2017 DTaP/TDaP/Td (3 - Td or Tdap) 09/30/2032, 11/04/2017 Meningococcal B Vaccine Aged Out No l onger eligible based on patient's age to complete this topic Insurance [address] [place], [place] [id number]
--- OUTSIDE RECORDS SUMMARY | 2024-12-08 11:55 | XMS_ITS | Clinical Summary ---
Author Organization [facility] Address [address] [place] [address] Care Team Providers Care Dinkey Engine Mechanic Name Role Phone Pcp, No Primary Care Provider [phone] Source Comments This information has been disclosed [...] therelease of HIV test results or diagnoses. [id number] Allergies No known active allergies Medications [...] Plan of Treatment Not on file Insurance [facility] Care Teams Dinkey Engine Mechanic Relationship Specialty Start Date End Date Pcp, No No Address PCP - General 02/08/22
== END 2024-12-07 23:59 | disposition home or self-care (01) ==
LOC: LAB.DROPOF 12-08 11:53
PROVIDERS: PCP Nurse Practitioner; Visit Provider Nurse Practitioner
DX: E78.5 Hyperlipidemia, unspecified (principal); E11.9 Type 2 diabetes mellitus without complications
CPT/HCPCS: 80053; 80061; 83036

== ENCOUNTER 2025-03-02 08:44 | Outpatient (CLI) | payer OTHER, SELFPAY ==
--- OUTSIDE RECORDS SUMMARY | 2025-01-31 07:29 | XMS_ITS | Encounter Summary ---
Author Organization [place] [address] Care Team Providers Care Mig Welder Name Role Phone Unavailable Primary Care Provider Unavailabl e Encounter Details Date Type Department Care Team (Latest Contact Info) Description 01/31/2025 8:29 AM EDT - 01/31/2025 11:59 PM EDT Hospital Encounter [facility] [address] [place], [place] [id number] Acute back pain with sciatica, right; Acute back pain with sciatica, left Discharge Disposition: Home or Self Care Social History Tobacco Use Types Packs/Day Years Used Date Smoking Tobacco: Never Smokeless Tobacco: Current Sex and Gender Information Value Date Recorded Sex Assigned at Not on file Legal Sex Male 9:10 AM EST Gender Identity Not on file Sexual Orientation Not on file documented as of this encounter Medications at Time of Discharge acetaminophen (TYLENOL) 325 mg Oral Tab Take 325 mg by mouth every 6 hours as needed. 10/04/2016 meloxicam (MOBIC) 15 mg Oral Tablet Take 15 mg by mouth daily. 01/19/2025 metFORMIN (GLUCOPHAGE XR) 500 mg Oral ER 24 hr tablet Take 500 mg by mouth daily (with breakfast). 09/01/2024 traZODone (DESYREL) 50 mg Oral Tablet Take 50 mg by mouth nightly. 09/01/2024 documented as of this encounter Discharge Disposition Disposition Code Departure Means Destination Home or Self Care documented in this encounter Plan of Treatment Upcoming Encounters Date Type Department Care Team (Late st Contact Info) Description 03/18/2025 1:00 PM EST Ancillary Procedure [facility] [address] [place] [address] Jeffrey Garibay MD [address] [place] [address] 03/18/2025 2:00 PM EST Ancillary Procedure [facility] [address] [place] [address] Jeffrey Garibay MD [address] [place] [address] 03/23/2025 9:00 AM EST Office Visit Doug MAHER [address] [place] [address] Jeffrey Garibay MD [address] [place] [address] documented as of this encounter Procedures Procedure Name Priority Date/Time Associated Diagnosis Comments XR HIPS BILATERAL AP LATERAL W AP PELVIS Routine 01/31/2025 8:39 AM EDT Acute back pain with sciatica, right Acute back pain with sciatica, left XR LUMBAR SPINE AP AND LATERAL Routine 01/31/2025 8:39 AM EDT Acute back pain with sciatica, right Acute back pain with sciatica, left documented in this encounter Results * XR LUMBAR SPINE AP AND LATERAL (01/31/2025 8:39 AM EDT) Anatomical Region Laterality Modality L-spine Radiographic Maggy ging 01/31/2025 8:39 AM EDT Impressions 01/31/2025 8:49 AM EDT Mild discogenic change L5-S1. No fracture or malalignment. - Note: Radiology results need to be interpreted within a comprehensive clinical context. If you have questions about the radiology report, please contact the office of the ordering clinician. Narrative 01/31/2025 8:49 AM EDT AP AND LATERAL LUMBAR SPINE, 01/31/2025 8:39 AM CLINICAL HISTORY: M54.41-Lumbago with sciatica, right uhoh-TKJ-00-CM M54.42-Lumbago with sciatica, left pcqf-PKJ-20-CM COMPARISON: None. PROCEDURE COMMENTS: Minimum of 3 views lumbar spine per protocol. FINDINGS: Vertebral height and alignment anatomic. No fractures. Mild disc space narrowing L5-S1. Other disc spaces preserved. Procedure Note Michel Jaeger MD - 01/31/2025 AP AND LATERAL LUMBAR SPINE, 01/31/2025 8:39 AM CLINICAL HISTORY: M54.41-Lumbago with sciatica, right ftqx-DER-45-CM M54.42-Lumbago with sciatica, left hack-JEG-04-CM COMPARISON: None. PROCEDURE COMMENTS: Minimum of 3 views lumbar spine per protocol. FINDINGS: Vertebral height and alignment anatomic. No fractures. Mild disc space narrowing L5-S1. Other disc spaces preserved. IMPRESSION: Mild discogenic change L5-S1. No fracture or malalignment. - Note: Radiology results need to be interpreted within a comprehensiveclinical context. If you have questions about the radiology report, please contactthe office of the ordering clinician. Tess Jackson APRN IMG DIAGNOSTIC IMAGING ORDERAB LES Final Result * XR HIPS BILATERAL AP LATERAL W AP PELVIS (01/31/2025 8:39 AM EDT) Anatomical Region Laterality Modality Hip Radiographic Maggy ging 01/31/2025 8:39 AM EDT Impressions 01/31/2025 10:38 AM EDT No acute bony abnormality of the pelvis or hips. - Note: Radiology results need to be interpreted within a comprehensive clinical context. If you have questions about the radiology report, please contact the office of the ordering clinician. Narrative 01/31/2025 10:38 AM EDT AP PELVIS WITH TWO VIEWS EACH HIP, 01/31/2025 8:39 AM CLINICAL HISTORY: M54.41-Lumbago with sciatica, right [id number]-VVQ-31-CM M54.42-Lumbago with sciatica, left qpev-MRP-83-CM COMPARISON: None. PROCEDURE COMMENTS: AP pelvis with AP and frogleg views of each hip. FINDINGS: Bony structure of the pelvis and hips intact. No fracture or dislocation. Joint spaces overall well-maintained. No periostitis. Procedure Note Tonie Alford MD - 01/31/2025 AP PELVIS WITH TWO VIEWS EACH HIP, 01/31/2025 8:39 AM CLINICAL HISTORY: M54.41-Lumbago with sciatica, right [id number]-EFC-18-CM M54.42-Lumbago with sciatica, left rvsq-ALG-81-CM COMPARISON: None. PROCEDURE COMMENTS: AP pelvis with AP and frogleg views of each hip. FINDINGS: Bony structure of the pelvis and hips intact. No fracture or dislocation. Joint spaces overall well-maintained. No periostitis. IMPRESSION: No acute bony abnormality of the pelvis or hips. - Note: Radiology results need to be interpreted within a comprehensiveclinical context. If you have questions about the radiology report, please contactthe office of the ordering clinician. Tess Jackson APRN IMG DIAGNOSTIC IMAGING ORDERAB LES Final Result documented in this encounter Visit Diagnoses Diagnosis Acute back pain with sciatica, right Acute back pain with sciatica, left documented in this encounter
--- OUTSIDE RECORDS SUMMARY | 2025-02-09 11:30 | XMS_ITS | Encounter Summary ---
Author Organization [facility] Address [address] [place] [id number] Care Team Providers Care Cruller Maker Name Role Phone Unavailable Primary Care Provider Unavailabl e Reason for Visit * Reason Comments Pain Pain Encounter Details Date Type Department Care Team (Late st Contact Info) Description 02/09/2025 12:30 PM EDT Office Visit [facility] [address] [place], [place] [id number] Comfort Alegria PA-C [address] [place] [address] Chronic left hip pain (Primary Dx); Left lumbar radiculopathy Social History Tobacco Use Types Packs/Day Years Used Date Smoking Tobacco: Never Smokeless Tobacco: Current Tobacco Cessation:Ready to Q uit: Not Asked; Counseling Given: Not Answered Sex and Gender Information Value Date Recorded Sex Assigned at Not on file Legal Sex Male 9:10 AM EST Gender Identity Not on file Sexual Orientation Not on file documented as of this encounter Last Filed Vital Signs Vital Sign Reading Time Taken Comments Blood Pressure - - Pulse - - Temperature - - Respiratory Rate - - Oxygen Saturation - - Inhaled Oxygen Concentration - - Weight 100.1 kg (220 lb 9.6 oz) 02/09/2025 1:16 PM EDT Height - - Body Mass Index 30.77 06/29/2023 11:02 AM EST documented in this encounter Progress Notes * Comfort Alegria PA-C - 02/09/2025 12:30 PM EDT Images from the original note were not included. DATE OF VISIT: 02/09/2025 PATIENT NAME: Sacha Parnell AGE: 40 y.o. SEX: male CHIEF COMPLAINT Chief Complaint Patient presents with ??? Lower Back - Pain ??? Left Hip - Pain HPI Sacha Parnell is a 40 y.o. male who presents to orthopedic urgent care for evaluation of low back andleft hip pain. Patient states he has had 8 months of left hip pain. States that he was doing jujitsu and his legs went out bilaterally, and he landed flat on his pelvis when the pain initially started. Continues tohave mild anterior hip pain. He rates his current pain is 1 out of 10 on the pain scale. His pain is worse when he moves from a sitting to standing position or abducts his left leg. Patient states that he has also had years of left-sided low back pain. He reports occasional radiation of pain down the posterior aspect of his leg to his knee. Reports intermittent paresthesias along the same pathway. He is able to ambulate with minimal pain. He has seen his primary care provider for this issue. He recently completed a steroid taper and was prescribed meloxicam. These medications do seem to help a lot. He was also referred for physical therapy. He has had one total visit of PT so far. 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 SOCIAL HISTORY Social History Occupational History ??? Not on file Tobacco Use ??? Smoking status: Never ??? Smokeless tobacco: Current Substance and Sexual Activity ??? Alcohol use: Not on file ??? Drug use: Not on file ??? Sexual activity: Not on file PAST MEDICAL HISTORY Past Medical History[1] CURRENT MEDICATIONS Current Medications[1] PHYSICAL EXAM General: Well appearing with appropriate affect. No acute distress. Head/Neck: Normocephalic. Range of motion of the neck easy without discomfort. Skin: Skin warm and dry. Color natural. Neuro: Alert and oriented to person, place, and time. Normal neurosensory response to touch. Pulmonary: Chest expansion appears symmetric and unlabored. Cardiovascular: No signs of peripheral edema. Lymphatic: No signs of lymphangitis. Gait: Walks with a non-antalgic gait. Musculoskeletal: LEFT HIP: No deformity, swelling, effusion or ecchymosis of hip joint. Tender to palpation hip flexors and groin. No pain with palpation of greater trochanter, sacroiliac joint, or iliac crest. Normal range of motion and strength. Negative log-roll. No pain with DAPHNIE test (flexion, abduction, external rotation). There is pain with FADIR test (flexion, adduction internal rotation). Negative straight leg raise against resistance. Patient is able to bear weight. Right hip is nontender with palpation. Full motion and full strength. No instabilities. LUMBAR SPINE: No midline tenderness. Mild tenderness left paraspinals. BILATERAL LOWER EXTREMITIES 5/5 motor function, strength and tone throughout dorsiflexion, plantarflexion, leg extension, and hip flexion. Sensation intact throughout. Straight leg raise negative bilaterally. Patellar tendon and gastroc reflexes 1+ bilaterally. No clonus. Range of motion of major joints without complaints of pain. IMAGING Lumbar spine xray, 2 views Spencer 01/31/25: Preserved anterior posterior alignment. Preservedvertebral body heights. Mild disc space narrowing L5-S1. No obvious acute osseous abnormality is identified. X-rays 2 Views Bilateral Hips: Preserved articulation and alignment of the femoroacetabular joint. No obvious acute fractures or dislocations are identified. ASSESSMENT Chronic Left Hip Pain Left Lumbar Radiculopathy PLAN I discussed the case with the patient and reviewed treatment options. Patient tells me that his recent steroid taper and meloxicam have been helping quite a bit. His pain complaint today is his persistent hip pain. He just recently began physical therapy. We discussed continuation of physical therapy. If his painworsens or does not improve, may consider MRI of the left hip. Tylenol over the counter, as needed, as directed on the bottle, not to exceed 3000 mg per day. Avoid aggravating activities. Patient will follow up with one of our hip specialists in 2-3 weeks for reevaluation and further management or sooner if symptoms worsen. The patient was in agreement with the treatment plan. DME Summary No orders found for display PROCEDURES Maria Elena Alegria PA-C [phone] [1] No past medical history on file.[1] Current Outpatient Medications: ??? acetaminophen (TYLENOL) 325 mg Oral Tab, Take 325 mg by mouth every 6 hours as needed., Disp: ,Rfl: ??? meloxicam (MOBIC) 15 mg Oral Tablet, Take 15 mg by mouth daily., Disp: , Rfl: ??? metFORMIN (GLUCOPHAGE XR) 500 mg Oral ER 24 hr tablet, Take 500 mg by mouth daily (with breakfast)., Disp: , Rfl: ??? MOUNJARO 5 mg/0.5 mL SubQ Pen Injector, Inject 5 mg under the skin once a week., Disp: , Rfl: ??? traZODone (DESYREL) 50 mg Oral Tablet, Take 50 mg by mouth nightly., Disp: , Rfl: documented in this encounter Plan of Treatment Upcoming Encounters Date Type Department Care Team (Late st Contact Info) Description 03/18/2025 1:00 PM EST Ancillary Procedure [facility] MRI [address] [address] Jeffrey Garibay MD [address] [place] [address] 03/18/2025 2:00 PM EST [facility] [address] [address] Jeffrey Garibay MD [address] [place] [address] 03/23/2025 9:00 AM EST Office Visit [facility] [address] [address] Jeffrey Garibay MD [address] [place] [id number] documented as of this encounter Visit Diagnoses Diagnosis Chronic left hip pain- Primary Pain in joint, pelvic region and thigh Left lumbar radiculopathy Thoracic or lumbosacral neuritis or radiculitis, unspecified documented in this encounter Historical Medications * This list may reflect changes made after this encounter. acetaminophen (TYLENOL) 325 mg Oral Tab Take 325 mg by mouth every 6 hours as needed. 10/04/2016 meloxicam (MOBIC) 15 mg Oral Tablet Take 15 mg by mouth daily. 01/19/2025 metFORMIN (GLUCOPHAGE XR) 500 mg Oral ER 24 hr tablet Take 500 mg by mouth daily (with breakfast). 09/01/2024 MOUNJARO 5 mg/0.5 mL SubQ Pen Injector Inject 5 mg under the skin once a week. 2025 traZODone (DESYREL) 50 mg Oral Tablet Take 50 mg by mouth nightly. 09/01/2024 added in this encounter
--- OUTSIDE RECORDS SUMMARY | 2025-03-02 10:00 | XMS_ITS | Encounter Summary ---
Author Organization [facility] Address [address] [place] [address] Care Team Providers Care Reducing Machine Operator Name Role Phone Unavailable Primary Care Provider Unavailabl e Reason for Referral * MRI/CAT Scan (Routine) - Pending Review Specialty Diagnoses / Procedures Referred By Contac t Referred To Contact Radiology Diagnoses Degeneration of intervertebral disc of lumbar region with discogenic back pain Procedures MRI LUMBAR SPINE WO CONTRAST Jeffrey Garibay MD [address] [place] [address] Phone: tel: fax: Referral ID Status Reason Start Date Expiration Date V isits Requested Visits Authorized [id number] Pending Review 03/02/2025 03/02/2026 1 1 * MRI/CAT Scan (Routine) - Pending Review Specialty Diagnoses / Procedures Referred By Contac t Referred To Contact Radiology Diagnoses Femoroacetabular impingement of left hip Procedures MRI HIP LEFT WO CONTRAST Jeffrey Garibay MD [address] [place] [address] Phone: tel: fax: Referral ID Status Reason Start Date Expiration Date V isits Requested Visits Authorized [id number] Pending Review 03/02/2025 03/02/2026 1 1 Reason for Visit * Reason Comments Pain Encounter Details Date Type Department Care Team (Latest Contact Info) Description 03/02/2025 10:00 AM EST [facility] [address] [place] [address] Jeffrey Garibay MD [address] [place] [address] Femoroacetabular impingement of left hip (Primary Dx); Degeneration of intervertebral disc of lumbar region with discogenic back pain Social History Tobacco Use Types Packs/Day Years Used Date Smoking Tobacco: Never Smokeless Tobacco: Current Sex and Gender Information Value Date Recorded Sex Assigned at Not on file Legal Sex Male 9:10 AM EST Gender Identity Not on file Sexual Orientation Not on file documented as of this encounter Progress Notes * Jeffrey Garibay MD - 03/02/2025 10:00 AM EST Images from the original note were not included. Subjective: 03/02/2025 Sacha Parnell 40 y.o. male. History of Present Illness The patient is a 40-year-old male who presents as a new patient with a primary reason for the visitof left hip pain. Left Hip Pain He has been experiencing intermittent left hip pain for the past 8 to 9 months, which he attributesto an incident where his pelvis impacted a mat during a workout session. He reports no associated popping sensation or immediate pain following the incident. The pain has been intermittent but has progressively worsened, leading to instability in the hip. He has abstained from mat exercises for thepast 6 weeks and has been undergoing physical therapy for the last 3 weeks. Despite resuming mat exercises last night without exacerbating his hip condition, he continues to experience weakness in the hip. He also reports a clicking sound during hip abduction. - Onset: 8 to 9 months ago following a workout incident. - Location: Left hip. - Duration: Intermittent pain for the past 8 to 9 months. - Character: Intermittent pain, progressively worsening, leading to instability and weakness; clicking sound during hip abduction. - Alleviating/Aggravating Factors: Abstained from mat exercises for the past 6 weeks; undergoing physical therapy for the last 3 weeks; prolonged sitting exacerbates discomfort. - Timing: Pain has been intermittent but progressively worsening. - Severity: Progressive worsening leading to instability and weakness. Lower Back Pain He also reports mild pain in the lower back, reminiscent of sciatica. - Character: Mild pain, reminiscent of sciatica. Occupation and History His occupation as a nurse involves prolonged sitting, which exacerbates his discomfort, although this has improved with physical therapy. He has not undergone any previous MRI scans of his back. He has a history of shooting leg pain and was previously diagnosed with degenerative disc disease. SOCIAL HISTORY - Occupation: Nurse ALLERGIES Allergies[1] MEDICATIONS Medications ordered prior to the current encounter[2] SOCIAL HISTORY Social History[3] PAST MEDICAL HISTORY Past Medical History[4] SURGICAL HISTORY Surgical History[5] Objective: Estimated body mass index is 30.77 kg/m?? as calculated from the following: Height as of 06/29/23: 5' 11 (1.803 m). Weight as of 02/09/25: 220 lb 9.6 oz (100.1 kg). PHYSICAL EXAMINATION: General: Well appearing with appropriate affect. No acute distress. Head/neck: Normocephalic. Range of motion of the neck: Easy without discomfort. Skin: Skin warm and dry. Color natural. Neuro: Alert and oriented to person, place, and time. Normal neurosensory response to touch. Pulmonary: Chest expansion appears symmetric and unlabored. Cardiovascular: No signs of peripheral edema. Lymphatic: No signs of lymphangitis. Musculoskeletal: Physical Exam - Musculoskeletal: - Left hip: - No pain with log roll - Tenderness over the left iliac crest - No tenderness over the greater trochanter - Hip flexion to 110 degrees - No pain with hyperflexion - Positive FADIR test - Internal rotation to 20 degrees - External rotation to 70 degrees - Negative figure of four and DAPHNIE test - Negative Stinchfield test - Lumbar spine: - Tenderness over the left SI joint - Less tenderness over midline lumbar spine - No step-offs - Negative straight leg raise - Full strength bilateral lower extremities Assessment and Plan: Assessment & Plan 1. Left hip pain: - Experiencing left hip pain for 8-9 months, not completely resolved - X-rays show mild degenerative changes and mild cam deformity, no fractures or dislocations - Tenderness over the left iliac crest and positive FADIR test suggest possible labral tear - Order MRI of the left hip to investigate further - If MRI confirms labral tear, treatment options include: - Continuing physical therapy - Anti-inflammatories - Possible arthroscopic procedure if symptoms persist 2. Low back pain: - Reports more pain in the low back than in the hip, history of sciatic pain - X-rays of lumbar spine show mild multilevel degenerative changes, worse at L4- L5 and L5-S1 - Facet sclerosis and narrowing of the foraminal space - Order MRI of the lumbar spine to evaluate extent of degenerative changes and potential nerve involvement Follow-up: - Patient to follow up after MRI results are available to discuss further treatment options MDM: Level 4 acute injury or acute aggravation of chronic injury advanced imaging ordered or independently interpreted and reviewed with patient close follow-up appointment Diagnoses and all orders for this visit: Femoroacetabular impingement of left hip - MRI HIP LEFT WO CONTRAST; Future Degeneration of intervertebral disc of lumbar region with discogenic back pain - MRI LUMBAR SPINE WO CONTRAST; Future Radiology/Laboratory Results: Results - Imaging: - X-ray of the left hip (01/31/2025): - No hip dysplasia - Lateral center-edge angle: 27.2 degrees - Mild degenerative changes with joint space narrowing, subchondral sclerosis, Kellgren-Nba grade 1 - Mild cam deformity, alpha angle: 71.4 degrees - No fractures or dislocations - No lytic lesions - X-ray of the lumbar spine (01/31/2025): - Mild multilevel degenerative changes, worse at L4-L5, L5-S1 - Facet sclerosis - Narrowing of the foraminal space - Mild arthritis - Loss of disk height Please note that this coat room attendant was created using voice recognition software. Any errors are unintentional and may be due to voice recognition coat room attendant. The provider informed the patient (or legal artist representative) on the use of the ambient listening artificial intelligence tool, [employer] to obtain consent to its use. It was explained that this AI tool processes the conversation to generate a clinical note with the expected benefit of improved accuracy with a goal of improving the encounter experience for the patient and provider.?The provider explained that the medical information captured by the AI tool would be protected by applicable privacy laws. The patient was given an opportunity to ask questions and opt out of proceeding with the use of the AI tool. After being informed of such information, the patient (or legal artist representative), and each individual in attendance with the patient, consented to the use of the AI tool. Jeffrey Garibay MD [1] No Known Allergies [2] Current Outpatient Medications on File Prior to Visit Medication Sig Dispense Refill acetaminophen (TYLENOL) 325 mg Oral Tab Take 325 mg by mouth every 6 hours as needed. meloxicam (MOBIC) 15 mg Oral Tablet Take 15 mg by mouth daily. metFORMIN (GLUCOPHAGE XR) 500 mg Oral ER 24 hr tablet Take 500 mg by mouth daily (with breakfast). MOUNJARO 5 mg/0.5 mL SubQ Pen Injector Inject 5 mg under the skin once a week. traZODone (DESYREL) 50 mg Oral Tablet Take 50 mg by mouth nightly. No current facility-administered medications on file prior to visit. [3] Social History Socioeconomic History Marital status: Tobacco Use Smoking status: Never Smokeless tobacco: Current Social Drivers of Health Food Insecurity: Unknown (05/19/2023) Received from [facility] Food Insecurities Worried about running out of food: Not on file Food Bought: Not on file Transportation Needs: Unknown (05/19/2023) Received from [facility] Transportation Worried about transportation: Not on file Intimate Partner Violence: Unknown (05/19/2023) Received from [facility] Interpersonal Safety Feel physically or emotionally unsafe where currently live: Not on file Harm by anyone: Not on file Emotionally Harmed: Not on file Housing Stability: Unknown (05/19/2023) Received from [facility] Housing/Utilities Worried about losing home: Not on file Stayed outside house: Not on file Unable to get utilities: Not on file [4] No past medical history on file. [5] No past surgical history on file. documented in this encounter Plan of Treatment Upcoming Encounters Date Type Department Care Team (Late st Contact Info) Description 03/18/2025 1:00 PM EST Ancillary Procedure [facility] MRI [address] [address] Jeffrey Garibay MD [address] [place] [address] 03/18/2025 2:00 PM EST Ancillary Procedure [facility] MRI [address] [address] Jeffrey Garibay MD [address] [place] [address] 03/23/2025 9:00 AM EST Office Visit [facility] [address] [place] [address] Jeffrey Garibay MD [address] [place] [address] Scheduled Orders Name Type Priority Associated Diagnoses Orde r Schedule MRI HIP LEFT WO CONTRAST Imaging Routine Femoroacetabular impingement of left hip 1 Occurrences starting 03/02/2025 until 03/02/2026 MRI LUMBAR SPINE WO CONTRAST Imaging Routine Degeneration of intervertebral disc of lumbar region with discogenic back pain 1 Occurrences starting 03/02/2025 until 03/02/2026 documented as of this encounter Visit Diagnoses Diagnosis Femoroacetabular impingement of left hip- Primary Enthesopathy of hip region Degeneration of intervertebral disc of lumbar region with discogenic back pain documented in this encounter
[2025-03-02 15:39] LABS: Albumin Level 5.0 g/dl (3.5-5.0); Chloride 104 mmol/L (98-107); Potassium 4.2 mmoL/L (3.5-5.1); Sodium 142 mmol/L (136-145)
[2025-03-02 15:41] LABS: Alanine Aminotransferase 41 U/L (12-78); Anion Gap 12.2 mEq/L (5-15); Aspartate Amino Transferase 39 U/L (17-59); Blood Urea Nitrogen 24 mg/dl (9-20); Carbon Dioxide 30 mmol/L (22.0-30.0); Creatinine,Serum 1.20 mg/dl (0.66-1.25); Estimated Glomerular Filt Rate 67 ml/min (>60); GFR (African American) 81 ML/MIN (>60)
[2025-03-02 15:42] LABS: Albumin/Globulin Ratio 2.8 (1.1-1.8); Alkaline Phosphatase 82 U/L (38-126); Bilirubin,Total 0.8 mg/dl (0.2-1.3); Calcium 8.8 mg/dl (8.4-10.2); Cholesterol 113 mg/dl (140-200); Globulin 1.8 g/dL (1.3-3.2); Glucose 127 mg/dl (74-100); HDL Cholesterol 25 mg/dl (40-60); Total Protein,Serum 6.8 g/dl (6.3-8.2); Triglycerides 165 mg/dl (30-150)
[2025-03-02 19:28] LABS: Hemoglobin A1C 6.6 % (4.0-6.0)
--- OUTSIDE RECORDS SUMMARY | 2025-03-03 20:12 | XMS_ITS | Clinical Summary ---
Author Organization [facility] Address [address] [place], [place] [address] [address] Phone Care Team Providers Care Director Of Career Resources Name Role Phone Unavailable Primary Care Provider Unavailabl e Allergies No known active allergies Medications traZODone (DESYREL) 50 mg Oral Tablet Take 50 mg by mouth nightly. 09/01/2024 Active MOUNJARO 5 mg/0.5 mL SubQ Pen Injector Inject 5 mg under the skin once a week. 2025 Active metFORMIN (GLUCOPHAGE XR) 500 mg Oral ER 24 hr tablet Take 500 mg by mouth daily (with breakfast). 09/01/2024 Active meloxicam (MOBIC) 15 mg Oral Tablet Take 15 mg by mouth daily. 01/19/2025 Active acetaminophen (TYLENOL) 325 mg Oral Tab Take 325 mg by mouth every 6 hours as needed. 10/04/2016 Active Active Problems Problem Noted Date Diagnosed Date Obesity (BMI 30.0-34.9) 11/01/2021 Dyslipidemia 09/24/2018 Type 2 diabetes mellitus wit hout complication, without long-term current use of insulin 09/24/2018 Nonspecific elevation of lev els of transaminase or lactic acid dehydrogenase (LDH) 03/20/2010 Encounters Date Type Department Care Team Description 03/02/2025 10:00 AM EST Office Visit [facility] [address] [address] Jeffrey Garibay MD Femoroacetabular impingement of left hip (Primary Dx); Degeneration of intervertebral disc of lumbar region with discogenic back pain 02/09/2025 12:30 PM EDT Office Visit [facility] [address] [address] Comfort Alegria PA-C Chronic left hip pain (Primary Dx); Left lumbar radiculopathy 01/31/2025 8:29 AM EDT - 01/31/2025 11:59 PM EDT Hospital Encounter [facility] [address] [place] [address] Acute back pain with sciatica, right; Acute back pain with sciatica, left Discharge Disposition: Home or Self Care from Last 3 Months Social History Tobacco Use Types Packs/Day Years [...] EST Inhaled Oxygen Concentration - - Weight 100.1 kg (220 lb 9.6 oz) 02/09/2025 1:16 PM EDT Height 180.3 cm (5' 11 ) 06/29/2023 11: 02 AM EST Body Mass Index 30.77 06/29/2023 11:02 AM EST Plan of Treatment Upcoming Encounters Date Type Department Care Team (Late st Contact Info) Description 03/18/2025 1:00 PM EST Ancillary Procedure [facility] [address] [address] Jeffrey Garibay MD [address] [place] [address] 03/18/2025 2:00 PM EST Ancillary Procedure [facility] [address] [address] Jeffrey Garibay MD [address] [facility] [place] [address] 03/23/2025 9:00 AM EST Office Visit [facility] [address] [place] [address] Jeffrey Garibay MD [address] [place] [address] Health Maintenance Due Date Last Done Comments Annual Wellness Exam 02/03/1987 Diabetic Eye Exam 02/03/2002 Kidney Health: eGFR 02/03/2002 Kidney Health: uACR 02/03/2002 Hepatitis B Vaccine (1 of 3 - 19+ 3-dose series) 02/03/2003 Pneumococcal Vaccine 0-49 (1 of 2 - PCV) 02/03/2003 Hemoglobin A1c 05/02/2022 10/30/2021 Lipids 10/30/2022 10/30/2021 COVID-19 Vaccine (3 - 2024-2 6 season) 2024 12/22/2020, 11/27/2020 Influenza Vaccine (#1) 2024 , 01/09/2017 DTaP/TDaP/Td (3 - Td or Tdap) 09/30/2032, 11/04/2017 Meningococcal B Vaccine Aged Out No l onger eligible based on patient's age to complete this topic Procedures Procedure Name Priority Date/Time Associated Diagnosis Comments XR LUMBAR SPINE AP AND LATERAL Routine 01/31/2025 8:39 AM EDT Acute back pain with sciatica, right Acute back pain with sciatica, left XR HIPS BILATERAL AP LATERAL W AP PELVIS Routine 01/31/2025 8:39 AM EDT Acute back pain with sciatica, right Acute back pain with sciatica, left from Last 3 Months Results * XR HIPS BILATERAL AP LATERAL W [...] AM CLINICAL HISTORY: M54.41-Lumbago with sciatica, right iapy-TCB-90-CM M54.42-Lumbago with sciatica, left tkis-ERA-94-CM COMPARISON: None. PROCEDURE COMMENTS: AP pelvis with AP and frogleg views of each hip. FINDINGS: Bony structure of the pelvis and hips intact. No fracture or dislocation. Joint spaces overall well-maintained. No periostitis. Procedure Note Tonie Alford MD - 01/31/2025 AP PELVIS WITH TWO VIEWS EACH HIP, 01/31/2025 8:39 AM CLINICAL HISTORY: M54.41-Lumbago with sciatica, right gspu-VYH-12-CM M54.42-Lumbago with sciatica, left dxin-RMU-53-CM COMPARISON: None. PROCEDURE COMMENTS: AP pelvis with [...] office of the ordering clinician. Tess Jackson CORPORATE VP ADVERTISING & ONLINE IMG DIAGNOSTIC IMAGING ORDERAB LES Final Result * XR LUMBAR SPINE AP AND LATERAL [...] AM CLINICAL HISTORY: M54.41-Lumbago with sciatica, right qagj-QWR-47-CM M54.42-Lumbago with sciatica, left mhsv-TTU-96-CM COMPARISON: None. PROCEDURE COMMENTS: Minimum of 3 views lumbar spine per protocol. FINDINGS: Vertebral height and alignment anatomic. No fractures. Mild disc space narrowing L5-S1. Other disc spaces preserved. Procedure Note Michel Jaeger MD - 01/31/2025 AP AND LATERAL LUMBAR SPINE, 01/31/2025 8:39 AM CLINICAL HISTORY: M54.41-Lumbago with sciatica, right atqk-XRC-24-CM M54.42-Lumbago with sciatica, left dlhg-SXC-18-CM COMPARISON: None. PROCEDURE COMMENTS: Minimum of 3 [...] office of the ordering clinician. Tess Jackson CORPORATE VP ADVERTISING & ONLINE IMG DIAGNOSTIC IMAGING ORDERAB LES Final Result from Last 3 Months Insurance [facility] [employer] [place] [place] [id number] [place] [address] [employer] [place] [id number]
--- OUTSIDE RECORDS SUMMARY | 2025-03-03 20:12 | XMS_ITS | Patient Health Record ---
Author Organization [facility] Address [address] [place] [address] Care Team Providers Care Social Service Agency Director Name Role Phone [facility] Primary Care Provide r Unavailable [...] tab X 5 days orally once a day; Duration: 15 day(s) 10/04/2016 Not-Taking Zanfel - 1 CANDELARIO APPLIED TOPICALLY 2 TIMES A DAY *Please review and pick correct strength-formulatio n from [employer]oga options. If intended option is not shown, discontinue and re-order from Quick Search* Not-Taking Caladryl 1-8 % 1 candelario applied topically 3 times a day Not-Taking Immunizations Vaccine Route Administration Date Status Comme nts zPPD ID Intradermal 09/07/2015 Administered zPPD ID Intradermal 08/21/2016 Administered Varicella: Varivax SC Subcutaneous 09/07/2015 Administered Varicella: Varivax SC Subcutaneous 04/15/2016 Administered Problems No Known Problems Plan Of Treatment No Information Insurance Providers Payer Name Payer Address Payer Phone Subscriber Number Group Number Insured Name Patient Relationship to Insured Coverage Start Date Coverage End Date [place] [address] [place] [address] [id number] Sacha Parnell Self - patient is the insured Medical (General) History Medical History History ICD Code Type 2 Diabetes Hospitalization History Reason Date(Month/Year) Rabdo? 2008
--- OUTSIDE RECORDS SUMMARY | 2025-03-03 20:12 | XMS_ITS | Encounter Summary ---
Author Organization [facility] Address [address] [place] [address] Care Team Providers Care Automation Operator Name Role Phone Jah Valenzuela MD Primary Care Provider [phone] Lakisha Villanueva ANIMAL KEEPER Unavailable Unavailable Maira Arias MD Unavailable [phone] Maira Arias MD Primary Care Provider [phone] Radha Reid ANIMAL KEEPER Unavailable Unavailable Reason for Visit * Reason Comments Medications Refill Encounter Details Date Type Department Care Team (Late st Contact Info) Description 10/03/2020 Refill [facility] Phys[facility] - Primary Care[address] [address] Jah Valenzuela MD [address] [address] Medications Refill Social History Tobacco [...] documented as of this encounter Care Teams Automation Operator Relationship Specialty Start Date End Date Jah Valenzuela MD PCP - General Family Medicine 09/24/18 03/11/22 Maira Arias MD [address] [place] [address] PCP - General Family Medicine 03/12/22 Lakisha Villanueva NP Nurse Practitioner Nurse Practitioner, Family 10/03/20 Maira Arias MD Family Medicine 10/30/21 Radha Reid NP [address] [address] Registered Nurse Nurse Practitioner, Family 03/18/22 documented as of this encounter
--- OUTSIDE RECORDS SUMMARY | 2025-03-03 20:12 | XMS_ITS | Encounter Summary ---
Author Organization [facility] Address [address] [place] [address] Care Team Providers Care E Commerce Project Manager Name Role Phone Jah Valenzuela MD Primary Care Provider [phone] Lakisha Villanueva NUTRITION MANAGER Unavailable Unavailable Maira Arias MD Unavailable [phone] Maira Arias MD Primary Care Provider [phone] Radha Reid NUTRITION MANAGER Unavailable Unavailable Encounter Details Date Type Department Care Team (Late st Contact Info) Description 04/19/[address] [facility] Physicians - Primary Care, [address] [address] Jah Valenzuela MD [address] [address] Social History Tobacco Use Types [...] documented as of this encounter Care Teams E Commerce Project Manager Relationship Specialty Start Date End Date Jah Valenzuela MD PCP - General Family Medicine 09/24/18 03/11/22 Maira Arias MD [address] [address] PCP - General Family Medicine 03/12/22 Lakisha Villanueva NP Nurse Practitioner Nurse Practitioner, Family 10/03/20 Maira Arias MD Family Medicine 10/30/21 Radha Reid NP [address] [address] Registered Nurse Nurse Practitioner, Family 03/18/22 documented as of this encounter
--- OUTSIDE RECORDS SUMMARY | 2025-03-03 20:12 | XMS_ITS | Clinical Summary ---
Author Organization [facility] Address [address] [place] [address] Care Team Providers Care Police Patrol Lieutenant Name Role Phone Pcp, None MD Primary Care Provider [phone] Allergies No known active allergies Medications No [...] SCDM series) 02/03/2011 COVID-19 Vaccine (3 - 2024- season) 2024 12/22/2020, 11/27/2020 Influenza Vaccine (#1) [...] patient's age to complete this topic [place] [address] [place] [address] ALL OTHERS NOT MEDICARE Care Teams Police Patrol Lieutenant Relationship Specialty Start Date End Date Pcp, MD Jason PCP - General Internal Medicine 04/13/23
--- OUTSIDE RECORDS SUMMARY | 2025-03-03 20:13 | XMS_ITS | Clinical Summary ---
Author Organization [facility] Address [address] [place] [address] Care Team Providers Care Salvage Winder And Inspector Name Role Phone Lakisha Villanueva GANG DRILL PRESS OPERATOR Unavailable Unavailable Maira Arias MD Unavailable [phone] Maira Arias MD Primary Care Provider [phone] Radha Reid GANG DRILL PRESS OPERATOR Unavailable Unavailable Allergies No known active allergies Medications amoxicillin-clavulan ate (AUGMENTIN) 875-125 mg per tablet 2 times daily. 2 Active ondansetron (ZOFRAN) 8 mg tabletIndications:Ac jame gastroenteritis Take 1 Tablet (8 mg) by mouth every 8 hours as needed for Nausea or Vomiting. 20 Tablet 2 Active fluticasone propionate (FLONASE) 50 mcg/actuation nasal sprayIndications:Acu te dysfunction of both eustachian tubes [place] 2 Sprays into nose daily. 1 Each [...] (Yearly) 1984 RETIRED: Pneumovax Vaccine (Once) 02/03/2002 HPV Vaccine (1 - 3-dose SCDM series) 02/03/2011 Diabetes A1c Monitoring 05/02/2022 10/31/19, 05/02/2021, 10/16/2020, Additional history exists Lipid Monitoring 10/30/2022 10/30/2021, 08/2021, 10/16/2020, Additional history exists Depression Screening 04/28/2024 05/02/2021, 02/02/2020, 09/24/2018 Diabetes Mellitus Microalbumin (Yearly) 04/28/2024 05/02/2021, 10/16/2020, 05/04/2019 Renal Monitoring 04/28/2024 10/30/2021, 08/2021, 10/16/2020, Additional history exists COVID-19 Vaccine ( season) 2024 12/22/2020, 11/27/2020 Influenza Vaccination (#1) 12/27/202402/26, 01/26/2020, 01/25/2019, Additional history exists Tetanus Vaccination (Every 10 Years) 11/05/2027 11/04/2017 Influenza Vaccination (Yearly) Discontinued 02/26/2021, 01/26/2020, 01/25/2019, Additional history exists Lipid Screening Discontinued 10/30/2021, 08/2021, 10/16/2020, Additional history exists Pneumococcal Vaccine: At-Risk Patients (6-49 y/o) Aged Out No longer eligible based on patient's age to complete this topic Procedures Procedure Name Priority Date/Time Associated Diagnosis Comments HGB, A1C (GLYCOHEMOGLOBIN) Routine 10/30/2021 5:02 PM EDT Obesity (BMI 30.0-34.9) COMPREHENSIVE METABOLIC PANEL Routine 10/30/2021 5:02 PM [...] EDT) Chol/HDL Ratio 6.5(H) 0 - 5 [facility] Cholesterol 209(H) 125 - 199 mg/dL [facility] Comment: TOTAL CHOLESTEROL INTERPRETATION: Less than 200 mg/dL Desireable 200-239 mg/dL Borderline Greater or Equal to 240 mg/dL High LDL Calculated 129(H) 0 - 100 mg/dL [facility] EX[facility] Comment: LDL CHOLESTEROL INTERPRETATION: Less than 100 mg/dL Optimal 100-129 mg/dL Near optimal/above optimal 130-159 mg/dL Borderline High 160-189 mg/dL High Greater or Equal to 190 mg/dL Very High HDL 32(L) 40 - 180 mg/dL [facility] EX[facility] Comment: HDL CHOLESTEROL INTERPRETATION: Less than 40 mg/dL Low Greater than 60 mg/dL Desirable Triglycerides 239(H) 0 - 149 mg/dL [facility] EX[facility] Comment: TOTAL TRIGLYCERIDE INTERPRETATION: Less than 150 mg/dL Normal 150-199 mg/dL Borderline HIgh 200-499 mg/dL High Greater or Equal to 500 mg/dL Very High Serum (Serum) 10/30/2021 5:0 2 PM EDT 10/30/2021 7:43 PM EDT Maira Arias MD CHEMISTRY ORDERABLES Final Re sult [facility] [address] * (ABNORMAL) HGB, A1C (GLYCOHEMOGLOBIN) (10/30/2021 5:02 PM EDT) Hgb A1C 6.7(H) 4.0 - 5.6 % [facility] EX[facility] Comment: Reference Ranges for [...] Glycohemoglobin Standardization program (NGSP) and traceable to [facility]. Estimated Average Glucose 146(H) 68 - 114 mg/dL [facility] EX[facility] Whole Blood 10/30/2021 5:02 PM EDT 10/30/2021 7:39 PM EDT us Maira Arias MD CHEMISTRY ORDERABLES Final Re sult [facility] EX[facility] [address] [place] [address], [facility] * (ABNORMAL) COMPREHENSIVE METABOLIC PANEL (10/30/2021 5:02 PM EDT) Sodium 138 135 - 146 mmol/L [facility] Potassium 4.1 3.5 - 5.1 mmol/L [facility] Chloride 106 98 - 110 mmol/L [facility] CO2 23 22 - 29 mmol/L [facility] Comment: Based on [facility] recommendations, this result is no longer considered a critical value requiring lab to notify caregiver. Anion Gap 9 5 - 13 mmol/L [facility] Comment:Anion gap calculatio n does not include potassium (K+) value. BUN 17 7 - 25 mg/dL [facility] Comment: Based on [facility] recommendations, this result is no longer considered [...] Total Protein 7.9 6.0 - 8.0 g/dL [facility] Albumin 4.8 3.5 - 5.0 g/dL [facility] Globulin 3.1 2.0 - 3.7 g/dL [facility] Albumin/Globulin Ratio 1.5 1.0 - 2.1 [facility] EX[facility] BUN/Creatinine Ratio 15 [facility] EX[facility] Serum (Serum) 10/30/2021 5:0 2 PM EDT 10/30/2021 7:43 PM EDT Maira Arias MD CHEMISTRY ORDERABLES Final Re sult Performing Organization Address [facility] de Phone Number [facility] [address] * ALBUMIN, URINE (05/02/2021 3:03 PM EST) Creatinine, Ur 249.7 30.0 - 310.0 mg/dL [facility] EX[facility] Alb, Ur 1.00 mg/dL [facility] ADVERTISING EXECUTIVE AL LAB Alb Creat Ratio 4 0 - 30 mg/g creat [facility] EX[facility] Comment: Category Result (mg/ [...] ORDERABLES Final Resul t Performing Organization Address [facility] de Phone Number [facility] [address] from Last 3 Months or Most Recently Relevant to Health Maintenance Insurance [id number] [id number] Care Teams Salvage Winder And Inspector Relationship Specialty Start Date End Date Maira Arias MD [address] [place] [address] PCP - General Family Medicine 03/12/22 Lakisha Villanueva NP Nurse Practitioner Nurse Practitioner, Family 10/03/20 Maira Arias MD Family Medicine 10/30/21 Radha Reid NP [address] [address] Registered Nurse Nurse Practitioner, Family 03/18/22
--- OUTSIDE RECORDS SUMMARY | 2025-03-03 20:13 | XMS_ITS | Clinical Summary ---
Author Organization [facility] Address [address] [place] [address] Care Team Providers Care Light Industrial Name Role Phone Pcp, No Primary Care Provider [phone] Source Comments This information has been disclosed [...] therelease of HIV test results or diagnoses. [id number] Allergies No known active allergies Medications [...] Plan of Treatment Not on file Insurance [facility] Care Teams Light Industrial Relationship Specialty Start Date End Date Pcp, No No Address PCP - General 02/08/22
== END 2025-03-02 23:59 | disposition home or self-care (01) ==
LOC: LAB.DROPOF 03-03 20:11
PROVIDERS: PCP Nurse Practitioner; Visit Provider Nurse Practitioner
DX: E78.5 Hyperlipidemia, unspecified (principal); E11.9 Type 2 diabetes mellitus without complications
CPT/HCPCS: 80053; 80061; 83036